=== PATIENT | female | born 1940 | race Caucasian/White ===

== ENCOUNTER 2018-10-13 13:47 | Inpatient (IN) | payer MEDICARE, OTHER ==
[~2018-10-13] VITALS: Ht 162.6 cm; Wt 117.9 kg
--- NOTE | 2018-10-13 08:52 | NUR ---
RN NOTES INFORMED PUMPER BREWERY XI REGARDING PATIENT'S ADMITTING ORDERS, XI BALLARD,UGO SAID IT'S DILMA LEONARD'S PATIENT WILL CONTACT DILMA LEONARD AGAIN.
--- NOTE | 2018-10-13 13:52 | NUR ---
BIBRA C/O GENERALIZED BODY PAIN, LEFT HIP PAIN. RECENTLY HAS DIFFICULTY WALKING. FAMILY SENT HER HERE FROM [facility] TWO DAYS AGO. BS 131. STATES SHE IS FAIRLY HEALTHY, HAS NOT BEEN SEEN BY A DR IN MANY YEARS. SIGNIFICANT BLE EDEMA NOTED. NO ACUTE DISTRESS. AOX4, VSS, RR EVEN AND UNLABORED ON RA. MADE COMFORTABLE, ON MONITOR, AND READY FOR EVAL.
--- NOTE | 2018-10-13 14:10 | NUR ---
DR VALENZUELA AT BEDSIDE FOR EVAL.
[2018-10-13] MEDS ORDERED: HYDROCODONE/APAP 5/325MG 1 EACH TABLET PO ONE (14:30)
[2018-10-13 14:33] LABS: BASOPHILS # (AUTO) 0.1 /CMM (0.0-0.2); BASOPHILS % (AUTO) 0.8 % (0.0-2.0); EOSINOPHILS % (AUTO) 2.4 % (0.0-6.0); HEMATOCRIT 42 % (33-45); HEMOGLOBIN 13.9 g/dL (11.5-14.8); LYMPHOCYTES # (AUTO) 1.5 /CMM (0.8-4.8); LYMPHOCYTES % (AUTO) 20.6 % (20.0-44.0); MEAN CORPUSCULAR HGB CONC 33 g/dl (31.0-36.0); MEAN CORPUSCULAR VOLUME 90 fL (82-100); MONOCYTES # (AUTO) 0.6 /CMM (0.1-1.30); MONOCYTES % (AUTO) 8.2 % (2.0-12.0); NEUTROPHILS # (AUTO) 5.1 /CMM (1.8-8.9); PLATELET COUNT (AUTO) 211 /CMM (150-450); RED BLOOD CELL COUNT(AUTO) 4.66 MIL/uL (4.0-5.2); WHITE BLOOD COUNT (AUTO) 7.5 K/uL (4.3-11.0)
[2018-10-13] MEDS ORDERED: HYDROCODONE/APAP 5/325MG 1 EACH TABLET ONE (14:36)
[2018-10-13 14:41] LABS: CALCIUM, SERUM 8.5 mg/dL (8.5-10.1); CARBON DIOXIDE 27 mmol/L (21-32); CHLORIDE 102 mmol/L (98-107); CREATININE 1.3 mg/dL (0.6-1.3); GLUCOSE 137 mg/dL (74-106); POTASSIUM 4.3 mmol/L (3.5-5.1); SODIUM SERUM 138 mmol/L (136-145); UREA NITROGEN, BLOOD 23 mg/dL (7-18)
[2018-10-13 14:53] LABS: ALANINE AMINOTRANSFERASE 19 U/L (12-78); ALBUMIN 3.2 g/dL (3.4-5.0); ALKALINE PHOSPHATASE 69 U/L (46-116); ASPARTATE AMINOTRANSFERASE 17 U/L (15-37); B-TYPE NATRIURETIC PEPTIDE 185 PG/ML (0-125); BILIRUBIN,DIRECT 0.1 mg/dL (0.0-0.2); BILIRUBIN,TOTAL 0.3 mg/dL (0.2-1.0); TOTAL PROTEIN, SERUM 6.5 g/dL (6.4-8.2)
--- NOTE | 2018-10-13 15:51 | NUR ---
PT RESTING COMFORTABLY IN BED. ASKING FOR TYLENOL. MD NOTIFIED.
[2018-10-13] MEDS ORDERED: ACETAMINOPHEN ES 500 MG TABLET PO ONE (16:00)
[2018-10-13] MEDS ORDERED: ACETAMINOPHEN ES 500 MG TABLET ONE (16:23)
[2018-10-13 16:35] LABS: APPEARANCE,URINE Clear (CLEAR); BILIRUBIN,URINE Negative (NEGATIVE); BLOOD, URINE Negative Ery/uL (NEGATIVE); COLOR,URINE Light yellow (YELLOW); KETONES,URINE Negative (NEGATIVE); LEUKOCYTE ESTERASE ,URINE Negative (NEGATIVE); NITRITE, URINE Negative (NEGATIVE); PH,URINE 7.5 (5.0-8.0); PROTEIN,URINE Negative (NEGATIVE); UGLUCOSE Negative (NEGATIVE); UROBILINOGEN,URINE 0.2 EU/dL (0.2)
[2018-10-13] MEDS ORDERED: ALEVE (17:00)
--- NOTE | 2018-10-13 17:52 | NUR ---
TELE1/RN REPORT FROM ER REPORT RECEIVED FROM ER NURSE PUMA FOR PT TO BE ADMITTED FOR UNABLE TO AMBULATE, DEHYDRATION AND PEDAL EDEMA UNDER THE CARE OF Genevieve SHIELDS AWAITING FOR PT'S ARRIVAL.
--- NOTE | 2018-10-13 17:52 | NUR ---
REPORT GIVEN TO SHER MCKEON FOR 111-2 T
[2018-10-13] MEDS ORDERED: KETOROLAC TROMETHAMINE INJ 30 MG/ML VIAL ONE (18:04)
[2018-10-13] MEDS: KETOROLAC TROMETHAMINE INJ 30 MG/ML VIAL IV PRN (18:25)
--- NOTE | 2018-10-13 18:43 | NUR ---
PT TRANSFERRED TO UNIT [facility]IA [facility]
--- NOTE | 2018-10-13 19:15 | NUR ---
TELE1/MEDICAL STAFF SERVICES COORDINATOR TO TELE1 - ROOM 111#1 PT ARRIVED VIA GURNEY ACCOMPANIED BY ER NURSE WHILE I WAS ATTENDING ANOTHER PT @ 1835 I WAS ABLE TO ATTEND TO PT @ 191. PT A/O X 4, OBESE, COMPLAINT OF BACK PAIN, ON ROOM AIR SATURATING WELL, PT WITH NOTED PEDAL EDEMA. PER PT'S GRANDDAUGHTER PT HAS VOIDED FREQUENTLY OR CONTINUOUSLY REQUESTING TO PLACE URINARY CATHETER, CALLED ROBSON LEONARD THROUGH EPIC PHONE EXCHANGE TO GET ORDER FOR THE REQUEST AWAITING FOR RETURN CALL. PT ENDORSED TO PM NURSE TO COMPLETE ADMITTING PROTOCOLS AND CONTINUE CARE. CL WITHIN REACHED AND SAFETY MAINTAINED.
--- NOTE | 2018-10-13 19:20 | NUR ---
ELECTRONIC REPAIR TROUBLESHOOTER NOTES RECEIVED PATIENT, AWAKE IN BED RESTING, NOT IN DISTRESS, SAFETY MEASURES IN PLACE, REPOSITIONED FOR COMFORT CALL LIGHT WITH IN EASY REACH, BED IN LOW LOCKED POSITION, IV ACCESS ON HER L HAND INTACT AND PATENT, TELE MONITOR READS SINUS 70s, AWAITING FOR ADMITTING ORDER FROM DILMA LEONARD NP ENDORSED BY AM NURSE.
--- NOTE | 2018-10-13 20:08 | NUR ---
RN NOTES STILL NO ORDERS YET, INFORMED DILMA LEONARD VIA TEXT MESSAGE REGARDING PTS' ADMITTING ORDERS.
--- NOTE | 2018-10-13 21:34 | NUR ---
RN NOTES FOLLOW UP TEXT SENT, STILL AWAITING FOR ADMITTING ORDERS FROM DILMA LEONARD.
[2018-10-13] MEDS ORDERED: Z GUARD REMEDY 2 OZ OINT TP PRN (23:30)
[2018-10-13] MEDS ORDERED: ONDANSETRON HCL/PF 4 MG/2 ML VIAL IVP PRN (23:30)
[2018-10-13] MEDS ORDERED: MAG HYDROX/AL HYDROX/SIMETH 30 ML UDC PO PRN (23:30)
[2018-10-13] MEDS ORDERED: TEMAZEPAM 7.5 MG CAPSULE PO PRN (23:30)
[2018-10-13] MEDS ORDERED: ZOLPIDEM TARTRATE 5 MG TABLET PO PRN (23:30)
[2018-10-13] MEDS ORDERED: HYDROCODONE/APAP 5/325MG 1 EACH TABLET PO PRN (23:30)
--- NOTE | 2018-10-13 23:45 | NUR ---
RN NOTES UNABLE TO INSERT ZARAGOZA CATH DUE TO ANATOMICAL POSITION OF HER URETHRA, PT REFUSED TO RE INSERT ONE MORE TIME.
[2018-10-14] VITALS: BP 136/62
[2018-10-14 04:15] VITALS: BP 110/42
[2018-10-14] MEDS: ACETAMINOPHEN 325 MG TABLET PO PRN ×3 (04:44→22:00)
--- NOTE | 2018-10-14 04:44 | NUR ---
SED MIDDLE SCHOOL TEACHER NOTES TYLENOL 650 MG TAB GIVEN FOR COMPLAINTS OF MILD BACK PAIN, REPOSITIONED FOR COMFORT, ALL NEEDS ATTENDED, VOIDED USING BEDPAN 5X AT THIS TIME SINCE 1900. WILL CONTINUE TO MONITOR.
--- NOTE | 2018-10-14 06:32 | NUR ---
RN NOTES ALL NEEDS ATTENDED AND MET, ABLE TO REST AND SLEPT AT INTERVALS, SAFETY MEASURES IN PLACE CALL LIGHT WITHIN EASY REACH, WILL ENDORSE TO AM NURSE FOR CONTINUITY OF CARE.
[2018-10-14 06:39] LABS: ALANINE AMINOTRANSFERASE 19 U/L (12-78); ALKALINE PHOSPHATASE 60 U/L (46-116); ASPARTATE AMINOTRANSFERASE 14 U/L (15-37); BILIRUBIN,TOTAL 0.4 mg/dL (0.2-1.0); CALCIUM, SERUM 8.8 mg/dL (8.5-10.1); CARBON DIOXIDE 30 mmol/L (21-32); CHLORIDE 104 mmol/L (98-107); GLUCOSE 125 mg/dL (74-106); PHOSPHORUS 3.4 mg/dL (2.5-4.9); POTASSIUM 4.4 mmol/L (3.5-5.1); SODIUM SERUM 141 mmol/L (136-145); TOTAL PROTEIN, SERUM 6.5 g/dL (6.4-8.2); UREA NITROGEN, BLOOD 15 mg/dL (7-18)
[2018-10-14 07:11] LABS: CHOLESTEROL 164 mg/dL (<200); HDL CHOLESTEROL 45 mg/dL (40-60); LDL 108 mg/dL (0-99); THYROID STIMULATING HORMONE 3.347 uIU/mL (0.358-3.74); TRIGLYCERIDES 128 mg/dL (30-150)
[2018-10-14 07:51] LABS: BASOPHILS # (AUTO) 0.1 /CMM (0.0-0.2); BASOPHILS % (AUTO) 0.7 % (0.0-2.0); EOSINOPHILS % (AUTO) 5.5 % (0.0-6.0); HEMATOCRIT 42 % (33-45); HEMOGLOBIN 14.1 g/dL (11.5-14.8); LYMPHOCYTES # (AUTO) 2.1 /CMM (0.8-4.8); LYMPHOCYTES % (AUTO) 27.6 % (20.0-44.0); MEAN CORPUSCULAR HGB CONC 34 g/dl (31.0-36.0); MEAN CORPUSCULAR VOLUME 89 fL (82-100); MONOCYTES # (AUTO) 0.8 /CMM (0.1-1.30); MONOCYTES % (AUTO) 10.2 % (2.0-12.0); NEUTROPHILS # (AUTO) 4.3 /CMM (1.8-8.9); PLATELET COUNT (AUTO) 222 /CMM (150-450); RED BLOOD CELL COUNT(AUTO) 4.68 MIL/uL (4.0-5.2); WHITE BLOOD COUNT (AUTO) 7.7 K/uL (4.3-11.0)
[2018-10-14 08:00] VITALS: BP 133/68
--- NOTE | 2018-10-14 08:47 | NUR ---
RECEIVED CALL FROM RADIOLOGIST: + DVT IN LEFT LEG. VERBALIZED TO DR. ALDANA IN ROOM 111-1 WHILE SEEING PATIENT
--- NOTE | 2018-10-14 09:00 | NUR ---
EDUCATED PATIENT ON EMERGENCY COMPLICATIONS OF DVT, INCLUDING BUT NOT LIMITED TO CHEST PAIN, COUGHING UP BLOOD, SOB, DIZZINESS, PALPITATIONS. CALL LIGHT WITHIN REACH. WILL CONTINUE TO MONITOR
--- NOTE | 2018-10-14 11:47 | NUR ---
RECEIVED ORDER FOR LOVENOX + CT PUL ANGIO. CONSENT SIGNED BY PATIENT AND PLACED IN CHART. NO SHORTNESS OF BREATH OR CHEST PAIN NOTED AT THIS TIME
[2018-10-14 12:00] VITALS: BP_SYST 120; BP_SYST 124; BP_DIAS 36; BP_DIAS 59
[2018-10-14] MEDS: ENOXAPARIN SODIUM 100 MG/ML DISP.SYRIN SQ SCH ×2 (12:12→20:09)
[2018-10-14] MEDS ORDERED: CT SWABBABLE VALVE TRANS SET 1 EA INFUS.SET MC ONE (13:19)
[2018-10-14] MEDS ORDERED: IV NS 0.9% 250 ML IV ONE (13:19)
[2018-10-14] MEDS ORDERED: IOHEXOL-350 100 ML VIAL IV ONE (13:19)
[2018-10-14 16:00] VITALS: BP 115/49
--- NOTE | 2018-10-14 19:36 | NUR ---
SEASONAL GREENERY BUNDLER OPENING NOTES: C/O GENERALIZED BODY PAIN, LEFT HIP PAIN. BED REST IN PLACE. WAS TOLD MY AM SHIFT DVT POSITIVE FOR R FEMORAL. SIGNIFICANT BLE EDEMA NOTED. NO ACUTE DISTRESS. AOX4, VSS, RR EVEN AND UNLABORED ON RA. MADE COMFORTABLE, ON MONITOR, NS. WILL CONTINUE TO MONITER. SAFETY PRECAUTIONS IN PLACE. .
[2018-10-14 20:00] VITALS: BP_SYST 139; BP_DIAS 57; BP_DIAS 79
[2018-10-14] MEDS: KETOROLAC TROMETHAMINE INJ 30 MG/ML VIAL IV PRN (20:01)
[2018-10-14] MEDS: HYDROCODONE/APAP 5/325MG 1 EACH TABLET PO PRN (23:32)
[2018-10-15] VITALS: BP_SYST 123; BP_SYST 126; BP_DIAS 67; BP_DIAS 75
[2018-10-15 04:00] VITALS: BP 126/75
[2018-10-15] MEDS: HYDROCODONE/APAP 5/325MG 1 EACH TABLET PO PRN ×4 (04:30→19:59)
--- NOTE | 2018-10-15 06:58 | NUR ---
AUTOMOTIVE ENGINEERING TECHNICIAN CLOSING NOTES: C/O GENERALIZED BODY PAIN, LEFT HIP PAIN NORCO GIVEN TWICE DURING SHIFT BED REST IN PLACE. WAS TOLD MY AM SHIFT DVT POSITIVE FOR R FEMORAL. SIGNIFICANT BLE EDEMA NOTED. NO ACUTE DISTRESS. AOX4,VITALS STABLE SATURATING WELL ON ROOM AIR OVERNIGHT MADE COMFORTABLE, ON MONITOR, NS. WILL CONTINUE TO MONITER. SAFETY PRECAUTIONS IN PLACE BED IN LOW LOCKED POSITION AND CALL LIGHT WITHIN REACH.
[2018-10-15 08:00] VITALS: BP 127/71
--- NOTE | 2018-10-15 08:07 | NUR ---
WOUND CARE CONSULT: PT PRESENTS WITH LEFT LOWER LEG WOUND WHICH IS CRUSTED/DRY AND SCRATCH TAMIE ON LEFT LATERAL LOWER LEG, PRESENT ON ADMISSION. RECOMMEND DPM CONSULT. DR GRAHAM AWARE OF CONSULT REQUEST. PT REFUSED TO TURN FOR FULL SKIN ASSESSMENT. RECOMMENDATIONS MADE FOR SKIN PROTECTION. DISCUSSED WITH NURSING STAFF. WILL SEE PRN. CURRENT FELIX SCORE IS 13. MD IN AGREEMENT WITH PLAN OF CARE.
--- NOTE | 2018-10-15 08:23 | NUR ---
OIL SALES AND SERVICE REP OPENING NOTE: PATIENT RECEIVED IN BED AND AWAKE. A/O X 4, NO SOB OR ACUTE DISTRESS NOTED. ON TELE SR 79. PATIENT C/O GENERALIZED MILD BODY PAIN CONTROLLED WELL OVERNIGHT. SIGNIFICANT BLE EDEMA NOTED. PATIENT POLY-UREMIC. DIAPER CHANGED. PATIENT CLEAN AND DRY. SATURATING WELL ON ROOM AIR. SAFETY PRECAUTIONS IN PLACE BED IN LOW LOCKED POSITION AND CALL LIGHT WITHIN REACH. WILL CONTINUE TO MONITOR.
[2018-10-15] MEDS: ENOXAPARIN SODIUM 100 MG/ML DISP.SYRIN SQ SCH (09:11)
[2018-10-15] MEDS: MAGNESIUM HYDROXIDE 30 ML UDC PO PRN ×2 (09:23→15:08)
[2018-10-15] MEDS ORDERED: IOHEXOL-300 100 ML VIAL IV ONE (11:29)
[2018-10-15] MEDS ORDERED: CT SWABBABLE VALVE TRANS SET 1 EA INFUS.SET MC ONE (11:30)
[2018-10-15] MEDS ORDERED: IV NS 0.9% 250 ML IV ONE (11:30)
--- NOTE | 2018-10-15 15:16 | NUR ---
MS RN NOTE GAVE OK FOR PATIENT TO AMBULATE WITH PT/ASSISTANCE.
[2018-10-15 16:00] VITALS: BP 125/75
--- NOTE | 2018-10-15 19:06 | NUR ---
ROSIN BARREL FILLER CLOSING NOTE: PATIENT IN BED AND AWAKE. DAUGHTER AT BEDSIDE. A/O X 4, NO SOB OR ACUTE DISTRESS NOTED. SIGNIFICANT BLE PLUS 4 EDEMA NOTED. PATIENT POLY-UREMIC. MULTIPLE DIAPER CHANGES AND BED BATH COMPLETED. PAIN WELL MANAGED THROUGHOUT SHIFT. SATURATING WELL ON ROOM AIR AT 95%. SAFETY PRECAUTIONS IN PLACE BED IN LOW LOCKED POSITION AND CALL LIGHT WITHIN REACH. CARE ENDORSED TO CHIEF CONTROLLER TOWER RN.
--- NOTE | 2018-10-15 19:20 | NUR ---
MS/RN NOTES: PATIENT IN BED, RESTING COMFORTABLY AT THIS TIME. NO S/S OF ACUTE DISTRESS NOTED, RESPIRATION EVEN AND UNLABORED. NO SOB NOTED. PATIENT ALERT AND ORIENTED X 4, DENIES ANY PAIN AT THIS TIME. PATIENT WITH BILATERAL LOWER EXTREMITY EDEMA +4. ELEVATED EXTREMITIES AT ALL THE TIME. HOB KEPT ELEVATED. LEFT AC 20 GAUGE NOTED WITH NO S/S OF INFECTION, PATENT, FLUSHED WITH NORMAL SALINE. SAFETY MAINTAINED, BED AT THE LOWEST LOCKED POSITION, WITH SIDE RAILS UP X2. CALL LIGHT WITHIN REACH. WILL CONTINUE TO MONITOR PATIENT PER PLAN OF CARE.
[2018-10-15 20:00] VITALS: BP 135/69
[2018-10-16] MEDS: HYDROCODONE/APAP 5/325MG 1 EACH TABLET PO PRN ×5 (01:44→23:44)
[2018-10-16 04:00] VITALS: BP 123/77
--- NOTE | 2018-10-16 06:52 | NUR ---
MS/RN NOTES: PATIENT IN BED, RESTING COMFORTABLY AT THIS TIME. NO S/S OF ACUTE DISTRESS NOTED, RESPIRATION EVEN AND UNLABORED. NO SOB NOTED. DENIES ANY PAIN AT THIS TIME. PATIENT WITH BILATERAL LOWER EXTREMITY EDEMA +4. ELEVATED EXTREMITIES AT ALL THE TIME. HOB KEPT ELEVATED. LEFT AC 20 GAUGE NOTED WITH NO S/S OF INFECTION, PATENT, FLUSHED WITH NORMAL SALINE. ALL MEDS GIVEN ORDERED. PATIENT TOLERATED WELL. SAFETY MAINTAINED, BED AT THE LOWEST LOCKED POSITION, WITH SIDE RAILS UP X2. CALL LIGHT WITHIN REACH. WILL ENDORSE TO AM SHIFT NURSE FOR CARINA.
--- NOTE | 2018-10-16 07:54 | NUR ---
MS RN OPENING NOTE: PATIENT RECEIVED IN BED AND AWAKE. A/O X 4, NO SOB OR ACUTE DISTRESS NOTED. PATIENT C/O GENERALIZED MILD BODY PAIN CONTROLLED WELL OVERNIGHT. SIGNIFICANT BLE EDEMA NOTED. PATIENT POLY-UREMIC. PATIENT CLEAN AND DRY AT THIS TIME. SATURATING WELL ON ROOM AIR. SAFETY PRECAUTIONS IN PLACE BED IN LOW LOCKED POSITION AND CALL LIGHT WITHIN REACH. WILL CONTINUE TO MONITOR.
[2018-10-16 08:00] VITALS: BP 123/69
[2018-10-16 08:11] LABS: BASOPHILS # (AUTO) 0.1 /CMM (0.0-0.2); BASOPHILS % (AUTO) 0.8 % (0.0-2.0); EOSINOPHILS % (AUTO) 4.6 % (0.0-6.0); HEMATOCRIT 46 % (33-45); HEMOGLOBIN 15.5 g/dL (11.5-14.8); LYMPHOCYTES # (AUTO) 1.9 /CMM (0.8-4.8); LYMPHOCYTES % (AUTO) 26.7 % (20.0-44.0); MEAN CORPUSCULAR HGB CONC 34 g/dl (31.0-36.0); MEAN CORPUSCULAR VOLUME 89 fL (82-100); MONOCYTES # (AUTO) 0.7 /CMM (0.1-1.30); MONOCYTES % (AUTO) 9.5 % (2.0-12.0); NEUTROPHILS # (AUTO) 4.1 /CMM (1.8-8.9); NEUTROPHILS % (AUTO) 58.4 % (43.0-81.0); PLATELET COUNT (AUTO) 242 /CMM (150-450); RED BLOOD CELL COUNT(AUTO) 5.18 MIL/uL (4.0-5.2); WHITE BLOOD COUNT (AUTO) 6.9 K/uL (4.3-11.0)
[2018-10-16 08:34] LABS: ALANINE AMINOTRANSFERASE 23 U/L (12-78); ALBUMIN 3.1 g/dL (3.4-5.0); ALKALINE PHOSPHATASE 68 U/L (46-116); ASPARTATE AMINOTRANSFERASE 16 U/L (15-37); BILIRUBIN,TOTAL 0.4 mg/dL (0.2-1.0); CALCIUM, SERUM 9.1 mg/dL (8.5-10.1); CARBON DIOXIDE 30 mmol/L (21-32); CHLORIDE 102 mmol/L (98-107); CREATININE 0.9 mg/dL (0.6-1.3); GLUCOSE 106 mg/dL (74-106); MAGNESIUM 2.2 mg/dL (1.8-2.4); PHOSPHORUS 3.9 mg/dL (2.5-4.9); POTASSIUM 4.4 mmol/L (3.5-5.1); SODIUM SERUM 139 mmol/L (136-145); UREA NITROGEN, BLOOD 12 mg/dL (7-18)
--- NOTE | 2018-10-16 11:35 | NUR ---
Pt. is a 78 year old female who was admitted to [facility] for dehydration and Edema. SW met with pt. bedside. Pt. is alert and oriented x 4. Pt. is pleasant and cooperative with SW. Pt. stated she was living for 12 years in [place] in a house with a caregiver but had to leave overnight to due the house being sold. Pt. then with help of friends moved to [place] and was living with them but had to move again due to pt. requiring a lot of care due to her ADL's etc. Pt's grand daughter Deysi picked pt. up from [facility] and brought her to live with her temporarily. However, pt. is non -ambulatory at this time and requires assistance with all her ADL's. Pt's grand daughter Deysi is unable to care for the pt. due to her skilled needs. Pt. is needing placement at this time and is at risk for homelessness. Pt. receives approximately $918 per month in SSI. No other social service needs are requested at this time. ALBERTO discussed case with mattress spring encaser Yee regarding SNF placement.
[2018-10-16 16:00] VITALS: BP 119/60
[2018-10-16] MEDS: APIXABAN 5 MG TABLET PO SCH (17:26)
--- NOTE | 2018-10-16 19:54 | NUR ---
MS RN OPENING NOTE: PATIENT IN BED AND AWAKE. A/O X 4, NO SOB OR ACUTE DISTRESS NOTED. SIGNIFICANT BLE PLUS 4 EDEMA NOTED. PATIENT POLY-UREMIC. MULTIPLE DIAPER CHANGES AND BED BATH COMPLETED. PAIN WELL MANAGED THROUGHOUT SHIFT. SATURATING WELL ON ROOM AIR AT 95%. SAFETY PRECAUTIONS IN PLACE BED IN LOW LOCKED POSITION AND CALL LIGHT WITHIN REACH. CARE ENDORSED TO AUDIOVISUAL AIDS TECHNICIAN RN.
[2018-10-16 20:00] VITALS: BP 115/77
--- NOTE | 2018-10-16 20:00 | NUR ---
RN NOTE RECEIVED PATIENT IN BED, ALERT/ORIENTED X 4, LEFT AC 20 GAUGE NOTED, NO S/S OF INFECTION/INFILTRATION NOTED, NO RESPIRATORY DISTRESS NOTED, ALL SAFETY MEASURES TAKEN
[2018-10-17] MEDS: HYDROCODONE/APAP 5/325MG 1 EACH TABLET PO PRN ×4 (03:58→19:17)
[2018-10-17 04:00] VITALS: BP 131/73
--- NOTE | 2018-10-17 07:16 | NUR ---
RN NOTE PATIENT IS STABLE, NO RESPIRATORY DISTRESS NOTED, NO DIZZINESS, NO PAIN OR DISCOMFORT, RESTED WELL AT NIGHT, ALL SAFETY MEASURES TAKEN, BEDSIDE REPORT PROVIDED, WILL CONTINUE TO MONITOR PATIENT
--- NOTE | 2018-10-17 07:30 | NUR ---
RN OPENING NOTES RECEIVED REPORT FROM HEAD BOYS TENNIS COACH RN. PT IS A&OX4. PT DENIES ANY PAIN OR SOB AT PRESENT MOMENT. PT STATED SHE HAS A DVT IN LEFT THIGH AND CAN RAISE HER LEG SLIGHTLY. PT STATES SHE DOES HAVE BACK PAIN BUT THAT IS BEING CONTROLLED WITH PAIN MEDICATION Q 4 HOURS. BED IS LOCKED AND IN LOWEST POSITION WITH CALL LIGHT IN REACH. SAFETY MEASURES IN PLACE WILL CONTINUE TO MONITOR.
[2018-10-17 08:00] VITALS: BP 129/71
[2018-10-17] MEDS: APIXABAN 5 MG TABLET PO SCH ×2 (08:04→17:15)
[2018-10-17] MEDS ORDERED: HYDR-3972 PO (08:59)
[2018-10-17] MEDS ORDERED: ACET325T53 PO (08:59)
[2018-10-17] MEDS ORDERED: APIX5TAB PO (08:59)
[2018-10-17] MEDS: KETOROLAC TROMETHAMINE INJ 30 MG/ML VIAL IV PRN ×2 (11:02→17:19)
[2018-10-17 16:00] VITALS: BP 131/70
--- NOTE | 2018-10-17 18:54 | NUR ---
RN CLOSING NOTES GAVE REPORT TO SENIOR CLIENT ADVISOR RN. REPORT CALLED IN TO SANDEEP RN ORGAN PIPE VOICER AT [facility] SHE ACCEPTED PT AND SAID ROOM WOULD BE 3A. PT IS A&OX4. DENIES SOB AND PAIN AT PRESENT MOMENT. WILL ENDORSE CONTINUITY OF CARE TO SENIOR CLIENT ADVISOR RN.
--- NOTE | 2018-10-17 19:49 | NUR ---
RN D/C NOTES PT SIGNED EXITCARE. PT IV REMOVED AND BELONGINGS GIVEN BACK TO PT. PACKET GIVEN TO AMBULANCE. PHOTOS PLACED IN CHART. PT LET UNIT AT 1950 WITHOUT INCIDENT.
== END 2018-10-17 19:50 | DRG 299 ==
LOC: ER 13:52 → TELE1 17:33 → MEDSG1 10-15 09:23
PROVIDERS: ADMIT Hospitalist; ATTEND Internal Medicine
DX: I82.412 Acute embolism and thrombosis of left femoral vein (principal); E43 Unspecified severe protein-calorie malnutrition; Z68.42 Body mass index [BMI] 45.0-49.9, adult; J98.11 Atelectasis; I50.30 Unspecified diastolic (congestive) heart failure; R53.1 Weakness; E66.01 Morbid (severe) obesity due to excess calories; M17.0 Bilateral primary osteoarthritis of knee; G89.29 Other chronic pain; M54.5 Low back pain; M48.061 Spinal stenosis, lumbar region without neurogenic claudication; Z88.2 Allergy status to sulfonamides; E88.09 Other disorders of plasma-protein metabolism, not elsewhere classified
CPT/HCPCS: 36415; 71045-TC; 72131-TC; 72193-TC; 80048-TC; 80053-TC; 80061-TC; 80076-TC; 81000-TC; 82962-TC; 83735-TC; 83880; 84100-TC; 84443-TC; 84484-TC; 85025-TC; 87081-TC; 93307-TC; 93970-TC; 97110-TC; 97116-TC; 97530-TC; G0378; J1650; J1885; J7030; J7050; Q9967

== ENCOUNTER 2018-10-27 13:44 | Emergency (ER) | payer OTHER ==
[~2018-10-27] VITALS: Ht 160 cm; Wt 116.6 kg
[~2018-10-27 13:44] MED LIST: ACET325T53 PO; APIX5TAB PO; HYDR-3972 PO
--- NOTE | 2018-10-27 14:00 | NUR ---
[facility] 2 HOURS AGO. SEND BY PMD FOR FURTHER EVAL. DENIES KO. ON ROOM AIR, BREATHING EVENLY AND UNLABORED. KEPT COMFORTABLE, WILL CONTINUE TO MONITOR ACCORDINGLY.
--- NOTE | 2018-10-27 16:13 | NUR ---
[id number] RESERVATION #[id number] ETA TO FOLLOW
--- NOTE | 2018-10-27 17:05 | NUR ---
ETA [id number]
[2018-10-27] MEDS ORDERED: ACETAMINOPHEN ES 500 MG TABLET ONE (17:06)
[2018-10-27] MEDS ORDERED: ACETAMINOPHEN ES 500 MG TABLET PO ONE (17:30)
[2018-10-27 18:30] VITALS: BP 135/82
--- NOTE | 2018-10-27 18:31 | NUR ---
discharge patient in stable condition, denies any pain or discomfort. Ambulance came to machine operator hop picker the patient going back to SNF.
== END 2018-10-27 18:31 ==
LOC: ER 13:50
DX: S00.03XA Contusion of scalp, initial encounter (principal); S09.8XXA Other specified injuries of head, initial encounter; R55 Syncope and collapse; Z86.718 Personal history of other venous thrombosis and embolism; Z90.49 Acquired absence of other specified parts of digestive tract; Z90.89 Acquired absence of other organs; Z98.890 Other specified postprocedural states; Z88.2 Allergy status to sulfonamides; W01.198A Fall on same level from slipping, tripping and stumbling with subsequent striking against other object, initial encounter; Y93.89 Activity, other specified; Y92.89 Other specified places as the place of occurrence of the external cause; Y99.8 Other external cause status
CPT/HCPCS: 70450-TC

== ENCOUNTER 2024-11-11 11:13 | Emergency (ER) | payer MEDICARE, OTHER ==
[~2024-11-11] VITALS: Ht 157.5 cm; Wt 107.5 kg
[2024-11-11 11:44] LABS: PLATELET COUNT (AUTO) 312 K/uL (150-450); RED BLOOD CELL COUNT(AUTO) 5.02 MIL/uL (4.0-5.2); RED CELL DISTRIBUTION WIDTH 13.5 % (11.5-15.0); WHITE BLOOD COUNT (AUTO) 12.8 K/uL (4.3-11.0)
[2024-11-11 11:50] LABS: CALCIUM, SERUM 9.2 mg/dL (8.5-10.1); CREATININE 0.9 mg/dL (0.6-1.3); SODIUM SERUM 135 mmol/L (136-145); UREA NITROGEN, BLOOD 14 mg/dL (7-18)
[2024-11-11 11:56] LABS: ASPARTATE AMINOTRANSFERASE 18 U/L (15-37); TOTAL PROTEIN, SERUM 7.5 g/dL (6.4-8.2)
[2024-11-11] MEDS ORDERED: ALBU18HF2 IH (12:11)
[2024-11-11] MEDS ORDERED: VITA1TAB56 PO (12:11)
[2024-11-11] MEDS ORDERED: ALBU0.633 IH (12:11)
[2024-11-11] MEDS ORDERED: COLLAGEN ULTRA PO (12:11)
[2024-11-11] MEDS ORDERED: LACT1CAP7 PO (12:11)
[2024-11-11] MEDS ORDERED: FURO20TA4 PO (12:11)
[2024-11-11] MEDS ORDERED: ACET-73 PO (12:11)
[2024-11-11] MEDS ORDERED: ICOS1CAP PO (12:11)
[2024-11-11] MEDS ORDERED: BISM262O64 PO (12:11)
[2024-11-11] MEDS ORDERED: LOPE2TAB25 PO (12:11)
[2024-11-11] MEDS ORDERED: METO25TA6 PO (12:11)
[2024-11-11] MEDS ORDERED: IBUP-1955 PO (12:11)
[2024-11-11] MEDS ORDERED: METO5TAB7 PO (12:11)
[2024-11-11] MEDS ORDERED: POTA-10 PO (12:11)
[2024-11-11] MEDS ORDERED: GABA-532 PO (12:11)
[2024-11-11] MEDS ORDERED: MAGN400O6 PO (12:11)
[2024-11-11] MEDS ORDERED: EYEL1KIT EACHEYE (12:11)
[2024-11-11] MEDS ORDERED: ACET325T53 PO (12:11)
[2024-11-11] MEDS ORDERED: MAG30ORA PO (12:11)
[2024-11-11] MEDS ORDERED: METR45CR2 TP (12:11)
[2024-11-11] MEDS ORDERED: CHOL100062 PO (12:11)
[2024-11-11] MEDS ORDERED: SENN8.6T19 PO (12:11)
[2024-11-11] MEDS ORDERED: ONDA4TAB11 PO (12:11)
[2024-11-11] MEDS ORDERED: DICL100G34 TP (12:11)
[2024-11-11] MEDS ORDERED: MULT-213 PO (12:11)
[2024-11-11] MEDS ORDERED: FLUT16SP BNOSTRILS (12:11)
[2024-11-11] MEDS ORDERED: DOCU100C36 PO (12:11)
[2024-11-11] MEDS ORDERED: APIX5TAB PO (12:11)
[2024-11-11] MEDS ORDERED: TRAM50TA2 PO (12:11)
[2024-11-11 14:22] VITALS: BP 116/69; TEMP 98.7; O2SAT 97
== END 2024-11-11 14:22 ==
LOC: ER 11:15
DX: R10.84 Generalized abdominal pain (principal); M19.90 Unspecified osteoarthritis, unspecified site; Z79.01 Long term (current) use of anticoagulants; Z79.899 Other long term (current) drug therapy; Z85.44 Personal history of malignant neoplasm of other female genital organs; Z87.01 Personal history of pneumonia (recurrent); Z87.19 Personal history of other diseases of the digestive system; Z88.2 Allergy status to sulfonamides; Z90.49 Acquired absence of other specified parts of digestive tract; Z90.89 Acquired absence of other organs
CPT/HCPCS: 36415; 80048-TC; 80076-TC; 83690-TC; 84484-TC; 85025-TC